=== PATIENT | female | born 1955 | race Caucasian/White ===

== ENCOUNTER 2021-10-24 09:08 | Inpatient (IN) | payer MEDICARE, OTHER ==
[~2021-10-24] VITALS: Ht 154.9 cm; Wt 157.2 kg
--- OUTSIDE RECORDS SUMMARY | 2021-10-24 09:12 | XMS ---
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 Gulshan has no Care Guidelines for this patient. Samaria VISIT COUNT (12 MO.) 1 SHANTE Cordon TOTAL 1 NOTE: Visits indicate total known visits. ED/C VISIT TRACKING (12 MO.) 10/24/2021 09:09 SHANTE Bang [place] TYPE: Emergency COMPLAINT: - ALTERED MENTAL STATUS, WEAKNESS INPATIENT VISIT TRACKING (12 MO.) No inpatient visits to display in this time frame [email or web address]
[2021-10-24] MEDS ORDERED: ATORVASTATIN CA40 MG PO (10:19)
[2021-10-24] MEDS ORDERED: LISINOPRIL20 MG PO (10:20)
[2021-10-24] MEDS ORDERED: METFORMIN HCL500 M1 PO (10:20)
[2021-10-24] MEDS ORDERED: GABAPENTIN100 MG PO (10:20)
[2021-10-24] MEDS ORDERED: GLIPIZIDE ER10 MG PO (10:20)
[2021-10-24] MEDS ORDERED: CHLORTHALIDONE25 MG PO (10:20)
[2021-10-24] MEDS ORDERED: ASPIRIN81 MG PO (10:21)
--- NOTE | 2021-10-24 14:00 | NUR ---
PT ARRIVED TO FLOOR VIA STRETCHER. PT STAND TRANSFERRED TO BED. PT UNSTEADY WITH STANDING. AND REQUIRED ASSISTANCE. PT ON 2L 92% NC.
--- NOTE | 2021-10-24 14:30 | NUR ---
THIS RN ASSISTED PT TO RESTROOM AND BACK TO BED. PTS SATS DROPPED TO 78% ON 2L NC. THIS RN TURNED UP OXYGEN, PT RECOVERED WITHIN 1 MIN. PT TO EAT LUNCH AT THIS TIME
--- NOTE | 2021-10-24 15:01 | NUR ---
MED REC COMPLETED BY PHARMACY
--- NOTE | 2021-10-24 16:40 | NUR ---
THIS RN TO CHECK ON PT. PT ON THE PHONE AND STATES THAT SHE IS DOING GOOD.
--- NOTE | 2021-10-24 17:33 | NUR ---
PT LAYING IN BED TALKING ON PHONE. BS SUGAR CHECK DONE, VS DONE. CALL LIGHT WITHIN REACH NO FURTHER NEEDS AT THIS TIME.
--- NOTE | 2021-10-24 18:07 | NUR ---
Spoke with pt by phone and she states she lives with her daughter in [place], [place]. She uses a cane and a shower chair. She denies other needs. She is on and we discussed I will assist with 02 if she needs on dc. Pt denies financial issues or any other needs..
--- NOTE | 2021-10-24 19:30 | NUR ---
SHIFT REPORT RECEIVED FROM PHILL IN [facility], pt ISOLATION-COVID POSITIVE. pt ON 2LNC, CPOX IN PLACE. SPO2 90'S. pt REPORTS NEED TO VOID, DRILL PRESS OPERATOR FOR METAL ALBERTO TO ASSIST pt. NO FURTHER NEEDS, CALL LIGHT IN REACH.
--- NOTE | 2021-10-24 19:50 | NUR ---
in to assist pt to the bsc, pt able to move legs on and off the bed with some assistince, pt voids qs and has a lg bm, assisted with ronnell care, back to bed, no further needs at this time
--- NOTE | 2021-10-24 22:12 | NUR ---
DR ALVARADO MADE AWARE OF pt's RECENT ACCUCHECK RESULT OF 488. NO ORDERS FOR INSULIN SS IN EMAR, DR ALVARADO TO PLACE ADDITIONAL INSULIN ORDERS.
--- NOTE | 2021-10-24 22:40 | NUR ---
SCHEDULED INSULIN SS LISPRO AND 20 UNITS LONG ACTING INSULIN GIVEN, SEE EMAR. pt AWAKE AND RESTING IN BED. CPOX IN PLACE, 2LNC ON. SPO2 WNL. pt DISCUSSED S/SX OF HYPOGLYCEMIA WITH THIS RN. WILL MONITOR. IV SITE WNL, FLUIDS INFUSING DIRECTED. NO FURTHER NEEDS, CALL LIGHT IN REACH.
--- NOTE | 2021-10-24 23:30 | NUR ---
ROUNDED ON pt, pt AWAKE AND RESTING IN BED, WATCHING TV. DENEIS NEEDS OR CONCERNS. GAVE ORACLE DBA A THUMBS UP FROM HALLWAY. CALL LIGHT IN REACH.
--- NOTE | 2021-10-25 00:55 | NUR ---
assisted pt onto bsc, then back to bed, pt now laying more to left side pillow under right side for support, pt asking if she can get a cpap mechine, "I use ine at home, but its not registered," will talk to the rn/rt, no further needs
--- NOTE | 2021-10-25 01:00 | NUR ---
INFORMED BY ARELY DOMINGUEZ, pt REPORTS INABILITY TO SLEEP AND USES A CPAP MACHINE AT HOME. THIS RN AND RT SATISH AT pt's DOOR. pt REPORTS SHE IS "NOT REGISTERED" BUT BOUGHT A USED CPAP MACHINE FROM THE PHARMACY. pt REPORTS SHE IS NOT DIAGNOSED WITH SLEEP APNEA, BUT STATES, "I KNOW I HAVE IT". pt REPORTS SHE HAS SOMEONE WHO COULD BRING IN HER MACHINE TOMORROW, pt REMAINS ON 2LNC. CPOX IN PLACE, SPO2 88%, pt RECENTLY REPOSITIONED, AUGIE LIND. CALL LIGHT IN REACH.
--- NOTE | 2021-10-25 01:30 | NUR ---
pt TITRATED FROM 2LNC TO 3.25-3.5 LNC, SPO2 LOW 90'S. HOB ALSO RASED FOR COMFORT. CPOX REMAINS IN PLACE, WILL MONITOR. NO FURTHER NEEDS. CALL LIGHT IN REACH. IV SITE WNL.
--- NOTE | 2021-10-25 05:39 | NUR ---
ASSESSMENT COMPLETE, pt REPORTS 10/10 PAIN IN BILATERAL THIGHS, pt REPORTS HX OF SIMILAR PAIN, PRN TYLENOL GIVEN (SEE EMAR). IV SITE WNL, NEW BAG IV FLUIDS HUNG AND INFUSED DIRECTED. FRESH WATER PROVIDED, VSS. CALL LIGHT IN REACH.
--- NOTE | 2021-10-25 08:25 | NUR ---
PHONE CALL FROM pt'S DAUGHTER MAIK. UNABLE TO BRING IN CPAP TODAY. QUESTIONS ANSWERED.
--- NOTE | 2021-10-25 08:30 | NUR ---
Discussed in 829 meeting, no plan for dc at this time. Pt will go home with daughter and brother on discharge.
--- NOTE | 2021-10-25 10:46 | NUR ---
Patient a&ox4, up to chair at this time. Patient reports sob with activity, sp02 93% on 3L per nc. Patient reports she slept well and feels much better this morning. No reported pain. IV decreased to 75ml/hr per provider order. No current needs. Persoanl supplies and call light within reach.
--- NOTE | 2021-10-25 11:30 | NUR ---
SPO2 80% ON TELE CPOX. THIS RN IN ROOM, pt'S OXYGEN FELL OF WHILE FIXING HAIR. 3L OXYGEN BY NC REAPPLIED. SPO2 INCRAESES TO WNL. COFFEE PROVIDED. CALL LIGHT IN REACH.
--- NOTE | 2021-10-25 11:44 | NUR ---
Reported blood sugar of [address] Rodriguez.
--- NOTE | 2021-10-25 13:13 | NUR ---
Patient sitting up in chair eating lunch, no distress. Patient is on 2L oxygen per nc, sp02 93% at this time. Patient denies distress and or pain. IV is saline locked. Fresh water at bedside. No current needs. Personal supplies and call light within reach.
--- NOTE | 2021-10-25 15:30 | NUR ---
Tylenol 650mg po admin for generalized pain. Patient sitting up in chair watching tv, no distress. Patient remains on 2L oxygen per nc, respirations non labored. Patient denies further needs at this time. SP02 93%. Fresh water provided. Personal supplies and call light within reach.
--- NOTE | 2021-10-25 17:30 | NUR ---
Dr. Rodriguez aware of most recent blood sugar of 458. Provider to update medications.
--- NOTE | 2021-10-25 18:15 | NUR ---
PHONE CALL FROM pt'S DAUGHTER. QUESTIONS ANSWERED. PHONE CALL TRANSFERRED TO ROOM.
--- NOTE | 2021-10-25 20:29 | NUR ---
ON REESPIRATORY ISOLATION. ON 3L NC, LUNGS DIM AT BASES, SL LFA PATENT. ABD HERNIA INTACT. LARGE ABD. GENERALIZED EDEMA HANDS AND LE. ENCOURAGED TO ELEVATE LEGS. VOIDING QS, WALKS TO BR. CBG 467, DR ALVARADO NOTIFIED, NO NEW ORDERS, RECEIVED SEMGLEE SCHEDULED AND 13 UNITS HUMALOG SS INSULIN. ROBITUSSING SYRUP AND TESSALON PERLES PER COUGH. UP IN CHAIR, WATCHING TV, COOP WITH ASSESSMENT, TOLERATING FLUIDS AND DIET, NO C/O PAIN OR N/V AT THIS TIME. NO SOB OR RESP DISTRESS STATED WHEN ASKED. CALL LIGHT AT HANDS REACH
--- NOTE | 2021-10-25 20:35 | NUR ---
CALLED DR ALVARADO TO NOTIFY OF BS OF 467 PER PROTOCOL. HE SAID OK TO GIVE THE ORDERED DOSE. NO NEW ORDERS RECEIVED.
--- NOTE | 2021-10-25 21:50 | NUR ---
IVF BOLUS 500CC STARTED AND EXTRA 10 UNITS SEMGLEE PER NEW ORDERS GIVEN SQ. PT AWARE, PT STATED THAT SHE IS AWARE OF S/SX OF HYPO/HYPERGLYCEMIA. UP IN CHAIR WATCHING TV
--- NOTE | 2021-10-26 00:53 | NUR ---
pt up in chair, legs in dependent position. Up to BSC with 1PA, voided large amounts of cloudy yellow urine. red buttocks area, back to bed. on 3LNC. tele/cpox #[address], sats 92%. Pt aware of proning positions, very obese. unable prone on her stomach
--- NOTE | 2021-10-26 02:49 | NUR ---
ON RESPIRATORY ISOLATION. PT ON 3LNC, MOUTH BREATHER, CPOX IN PLACE. PT HAS SLEEP APNEA, SLEEPS ON HER BACK/R SIDE. SATS DOWN TO 79 AND INMEDIATELY BACK TO 92-95% . LUNGS CLEAR, DIM AT BASES. COOPERATIVE WITH ASSESSMENT, UNABLE TO PRONE TO HER ABD DUE TO SIZE. BUT TURNS TO R AND LEFT SIDE. PRINTED PAMPHLETES FOR S/SX HYPO-HYPERGLYCEMIA GIVEN. CALL LIGHT AND LFUIDS AT [facility]
--- NOTE | 2021-10-26 05:35 | NUR ---
Pt has slept this shift. Continues on Respiratory isolation precautions. On 3LNC O2, lungs dim at bases, occassional dry non productive cough. received Tessalon perles and cough syrup ; c/o hips/thighs pain, medicated with Tylenol, effective. tolerating liquids well, no emeis. Up to BSC with assist, voided large amounts QS of cloudy urine, denies s/sx burning or pain with urination. needs assist transferring to bed. Generalized edema, very obese, alert, orineted and cooperative. uses call light
--- NOTE | 2021-10-26 07:30 | NUR ---
Shift report recieved from RN Maddison, pt resting safely w/ call light in reach and eyes closed, RR even and unlabored on 3L, O2 sats 97% per Tele #1 cpox.
--- NOTE | 2021-10-26 10:00 | NUR ---
1PA w/FWW to BSC, pt voided and assisted to chair, sitting up safely w/ call light in reach. Morning assesment complete, scheduled meds given, and IV anitviral hung and infusing per provider orders, see EMAR. Pt denies any needs at this time, minimal SOB w/ activity. O2 sats 93% on 3L per cpox Tele #1
--- NOTE | 2021-10-26 12:30 | NUR ---
Pt sitting up in chair safely w/ call light in reach, eating lunch. Scheduled and SS insulin given per provider order. Pt denies any other needs at this time
--- NOTE | 2021-10-26 14:00 | NUR ---
Pt sitting yp in chair w/ call light in reach, pt watching TV, denies any needs at this time
--- NOTE | 2021-10-26 14:37 | NUR ---
AMBULATED PT FROM CHAIR TO BSC USING PT'S CANE. PERICARE DONE. PT HELD BALANCE WHILE THIS SKOOG MACHINE OPERATOR AGRICULTURAL AGENT HER UP. ASSISTED PT WITH PIVOTING AND GETTING SITUATED BACK INTO BED. CALL LIGHT WITHIN REACH, NO FURTHER NEEDS AT THIS TIME
--- NOTE | 2021-10-26 17:01 | NUR ---
PHYSICAL THERAPIST HAD AMBULATED PT TO BR. ASSISTED PT WITH SHOWERING. PT NEEDED MINOR HELP WASHING HAIR, BACK, AND CARLOZ AREA. DRIED PT OFF, DRIED FLOOR OFF AND AMBULATED PT VIA CANE BACK TO BED. LINEN CHANGE COMPLETE. ASSISTED PT GETTING SITUATED IN BED. CALL LIGHT WTIHIN REACH, NO FURTHER NEEDS AT THIS TIME
--- NOTE | 2021-10-26 18:03 | NUR ---
PT SITTING UP IN BED W/ CALL LIGHT IN REACH, EATING DINNER, SCHEDULED AND SS INSULIN GIVEN PER PROVIDER ORDER, PT DENIES ANY OTHER NEEDS AT THIS TIME
--- NOTE | 2021-10-26 18:29 | NUR ---
IN TO GET VS. PT NEEDED TO VOID. SET BSC UP AT FOOT OF BED AND ASSISTED PT TO EDGE OF BED. PT WAS ABLE TO STAND UP ON HER OWN. GUIDED PT VIA CANE TO BSC. PT VOIDED. ASSISTED PT UP AND DID PERICARE. PT PIVOTED AND SAT ON EDGE OF BED, ASSISTED PT IN GETTING RESITUATED IN BED. CALL LIGHT WITHIN REACH, NO FURTHER NEEDS AT THIS TIME.
--- NOTE | 2021-10-27 00:12 | NUR ---
ON RESPIRATORY PRECAUTIONS, CPAP WITH 6L BLEEDING IN O2, CPOX #[address] SATS 80-93%, BRADYCHARDIC AT 48-57BPM, DENIES C/O, AWAKES EASILY
--- NOTE | 2021-10-27 02:05 | NUR ---
RESTING, USING CPAP W BLEEDING IN O2 6-8L. TELE CPOX#1, SATS 91% AT THIS TIME.
--- NOTE | 2021-10-27 06:03 | NUR ---
pT CONTINUES ON AIRBORNE ISOLATION PRECAUTIONS. ON 3LNC O2 , CPOX #1 . CURRENTLY UP IN CHAIR, LEGS ELEVATED. USED HER HOME CPAP WITH BLEEDING O2 6-8LSL PATENT, NO C/O CP. LUNGS DIM AT BASES, ON ROOM AIR, ALERT, ORIENTED, PLEASANT AND COOP. CBG 256 RECEIVED SS INSULIN. PT AWARE OF PRONING POSITIONING PAMPHLET IN ROOM
--- NOTE | 2021-10-27 07:03 | NUR ---
RN IN RM TO DECRESS O2 NC TO 2.5 LPM
--- NOTE | 2021-10-27 07:30 | NUR ---
THIS RN RECEIVED REPORT FROM SAGAR TRACY. CPOX IN PLACE
--- NOTE | 2021-10-27 07:31 | NUR ---
pt desatted to 65-80%, had taken O2 NC off, back to nares O2 increased back to 3L, in chair, sats 98% inmediately. no sob.
--- NOTE | 2021-10-27 08:40 | NUR ---
THIS RN IN PTS ROOM TO GIVE PT HER MORNING MEDS. PT STATES THAT SHE IS DOING WELL THIS AM DESPITE HAVING A HEADACHE 9/10 PAIN. THIS RN PROVIDED PT WITH 650MG TYLENOL. PT STATES THAT HE NEEDS NOTHING FURTHER AT THIS TIME. CALL LIGHT WITHIN REACH AND PT UP TO CHAIR STATING THAT SHE IS COMFORTABLE
--- NOTE | 2021-10-27 09:23 | NUR ---
BROUGHT PT WARM BLANKET. PT SITTING IN CHAIR WATCHING TV. CALL LIGHT WITHIN REACH NO FURTHER NEEDS AT THIS TIME
--- NOTE | 2021-10-27 09:35 | NUR ---
THIS RN IN PTS ROOM TO TURN OFF PTS REMDESIVIR. PT STATES THAT SHE IS DOING GOOD AND JUST NEEDS A PILLOW FOR HER HEAD. PT STATES THAT SHE IS COMFORTABLE IN THE CHAIR AT THIS TIME
--- NOTE | 2021-10-27 12:30 | NUR ---
THIS RN DECREASED PTS O2 TO 2.5L NC
--- NOTE | 2021-10-27 12:35 | NUR ---
THIS RN IN PTS ROOM TO GIVE INSULIN. THIS RN ENCOURAGED PT TO WORK WITH PHYSICAL THERAPY DUE TO PT NEEDING TO GO HOME IN THE NEXT FEW DAYS IF SHE CONTINUES TO IMPORVE. PT STATES THAT SHE WILL TRY. PT STATES TAHT SHE NEEDS NOTHING FURTHER AT THIS TIME.
--- NOTE | 2021-10-27 13:00 | NUR ---
ROBERTO FROM P.T. IN ROOM. PT DESATED ON MONITOR TO 65% BUT WAVEFORM DIDN'T APPEAR TO BE GOOD AND PT WAS MOVING AROUND TO MAKE THE WAVE FORM NOT CONGRUENT. ONCE WAVEFORM WAS BETTER ESTABLISHED SATS APPEARED TO BE 85-88% ON 2.5L WHILE UP AND MOVING. PT SAT DOWN AND RECOVERED WITHIN 2 MINS.
--- NOTE | 2021-10-27 13:28 | NUR ---
IN FOR VS. BROUGHT BSC TO A 90 DEGREE ANGLE FROM PT, AND ASSISTED HER IN AMBULATING TO IT VIA CANE. PT VOIDED. PERICARE DONE BY THIS SOLUTION DESIGN ENGINEER; PT UNABLE TO PERFORM IT HERSELF. AMBULATED PT BACK TO CHAIR VIA CANE. CALL LIGHT WITHIN REACH NO FURTHER NEEDS AT THIS TIME.
--- NOTE | 2021-10-27 14:12 | NUR ---
THIS RN UPDATED PTS DAUGHTER ON THE PHONE ABOUT PTS STATUS. ALL QUESTIONS ANSERED TO THIS RNS ABILITY.
--- NOTE | 2021-10-27 15:30 | NUR ---
THIS RN IN PTS ROOM TO GIVE PT SCHEDULED MEDS. PT SITTING UP IN CHAIR AND DOING WELL BUT DOES STATE THAT HER HEADACHE IS STILL LINGERING. THIS RN PROVIDED PT WITH 650MG TYLEONOL AT THIS TIME FOR HER [facility].
--- NOTE | 2021-10-27 15:35 | NUR ---
THIS RN IN PTS ROOM AND ENCOURAGED PT TO USE THE ACUPELLA DUE TO PTS LUNGS SOUNDING COURSE. PT STATES THAT SHE USED IT BUT WAS WORRIED THAT WE COULD HEAR IT, THIS RN EDUCATED PT THAT THIS IS ACTUALLY CELEBRATED IF WE HEAR PT USING.
--- NOTE | 2021-10-27 17:35 | NUR ---
THIS RN IN PTS ROOM TO GIVE INSULIN. PT STATES THAT SHE IS DOING GOOD. CALL LIGHT WITHIN REACH
--- NOTE | 2021-10-27 21:39 | NUR ---
PT WAS ON CHAIR AT BEGINING OF SHIFT, TO [facility], VOIDED QS YELLOW URINE WITH SEDIMENTS. RED CARLOZ. SL PATENT. ON3LNC, TELECPOX #[address], SATS 96%. BACK TO BED, CPAP W 6L BLEEDING O2 IN PLACE. SATS 94%. LUNGS DIM AT BASES, BRADYCHARDIC AT 54BPM. DENIES CP OR SOB WITH EXERTION. EDEMA GENERALIZED, LEGS ELEVATED, ON RESP ISOLATION PRECAUTIONS. RT IN ROOM. O2 DECREASED TO 2L NC PRIOR TO PLACING CPAP. USES CALL LIGHT, TOLERATED FLUIDS AND DIET, NO EMESIS, C/O GENERALIZED PAIN, MEDICATED WITH TYLENOL, TESSALON PERLES AND COUGH SYRUP PER COUGH, MOIST NON PRODUCTIVE OCASSIONAL COUGH PRESENT. ALERT AND ORIENTED, COOPERATIVE
--- NOTE | 2021-10-28 00:12 | NUR ---
using home CPAP, tele/cpox#1 95% P51, R18, call light and fluids a t bedside on resp isolation precautions
--- NOTE | 2021-10-28 01:53 | NUR ---
resting, eyes closed, using cpap w 6L bleeding O2. tele/cpox#1. 97% satgs p52
--- NOTE | 2021-10-28 02:19 | NUR ---
sats 98%, CPAP bleeding O2 decreaesd to 4L. resting, no resp distress
--- NOTE | 2021-10-28 03:39 | NUR ---
Pt was rsting, CPAP in place, got up to br and took O2 /cpap off. desated to 79%, P elevated up to 102bpm, resp 26. voided very large amount of cloudy yellow urine, back to bed. placed on 3lnc and went up to mid 80's and 89% right away. Back on CPAP w 4L/bleeding on O2. sats as per tele#1 90-93%, p51 resp 18. SOB with exertion noted. clean socks and underwear given as she dribbled on her way to the br. tolerating liquids well, went back to sleep inmediately. Instructed to use call light stated understanding, call light at hands reach
--- NOTE | 2021-10-28 05:18 | NUR ---
PT CONTINUES ON RESP ISOLATION. O2 2LNC WHEN AWAKE, HOME CPAP WITH 4L BLEEDING IN O2, LUNGS DIM AT BASES, OCC COUGH, RECEIVED TYLENOL, PER C/O PAIN, TESSALON PERLES AND COUGH SYRUP PER COUGH ALL EFFECTIVE. CBG 254 RECEIVED SS INSULI, DECLINES TO GIVE OWN INSULIN, DIABETIC TEACHNG DONE, SEMIRECEPTIVE. TOLERATING LIQUIDS WELL, NO EMESIS. UP TO BR W/O ASSIST X1, WAS INCONTINENT/DRIBBLED URINE, VOIDED VERY LARGE AMOUNT OF CLOUDY NORMAL SMALL YELLOW URINE. TOOK O2 TUBING OFF AND DESATTED , TACHEIPNEIC AND PULSE OVER 1020, NO CP, O2 SATS UP INMEDIATELY TO MID 80'S AND 90'S WITH O2 PER CP[OX#1. CURRENTLY 95% P51 R16
--- NOTE | 2021-10-28 06:56 | NUR ---
cpox#1, sats 91% using CPAP w 4L bleeding in O2. eyes closed, no distress, call light and fluidsa t bedside
--- NOTE | 2021-10-28 07:15 | NUR ---
this rn received report from elly oseguera. cpox in place
--- NOTE | 2021-10-28 07:45 | NUR ---
this rn in pts room to check on pt due to cpox reading o2 at 85%. pt had taken off o2.
--- NOTE | 2021-10-28 08:45 | NUR ---
THIS RN IN PTS ROOM TO GIVE MORNING MEDS. PT STATES THAT SHE NEEDS TO GO PEE, PT REQUESTING BEDSIDE COMMODE- THIS RN ENCOURAGED PT TO WALK INTO RESTROOM WHICH PT WAS ABLE TO DO WHILE USING CANE. PT STEADY ON FEET BUT DOES BECOME SOB. PT RECOVERS WELL BY THE TIME SHE GETS BACK TO HER CHAIR. PT REQUESTING FOR THIS RN TO WIPE HER, THIS RN ASKED IF PT WIPES HER HERSELF AT HOME, PT REPORTS THAT SHE DOESN'T DO IT WELL- THIS RN ENCOURAGE PT TO DO IT HERSELF. THIS RN TO GIVE PT INSULIN. THIS RN WAS EDUCATING PT ABOUT INSULIN, THIS RN ENCOURAGED PT TO GIVE HERSELF INSULIN, THIS RN EXPLAINED HOW TO DO IT AND THEN HAD PT PREFORM GIVING HERSELF INSULIN. PT ABLE TO COMPLETE WELL AND APPEARED PROUD OF HERSELF. PT STATES THAT SHE FEELS COMFORTABLE TAKING HER BLOOD SUGAR.
--- NOTE | 2021-10-28 09:35 | NUR ---
PT IN CHAIR WITH COFFEE WATCHING TV. CALL LIGHT WITHIN REACH NO FURTHER NEEDS AT THIS TIME.
--- NOTE | 2021-10-28 12:20 | NUR ---
THIS RN IN PTS ROOM TO GIVE INSULIN. THIS RN ALSO TOOK A PRINT OUT OF PTS SLIDING SCALE ORDERS AND TOLD PT WHAT HER BLOOD SUGAR WAS, PT ABLE TO FIGURE OUT HOW MANY UNITS OF INSULIN SHE WAS GOING TO NEED. THIS RN ALSO HAD PT USE AN ALCOHOL SWAB AND THEN GIVE HERSELF INSULIN. PT STATES THAT THIS ISN'T SCARY SHE THOUGHT. THIS RN GAVE PT A PACKET OF DIABETIC EDUCATION TO READ AND THEN THIS RN WILL BE BACK IN TO GO OVER EDUCATION WITH HER. PT UP TO CHAIR. CALL LIGHT AND PHONE WITHIN REACH
--- NOTE | 2021-10-28 13:33 | NUR ---
AMBULATED PT FROM CHAIR TO BSC VIA CANE. PERICARE DONE. PT WAS UNABLE TO DO HER OWN PERICARE. AMBULATED PT BACK TO CHAIR. PT NOW ON PHONE. CALL LIGHT WITHIN REACH NO FURTHER NEEDS AT THIS TIME. BP TAKEN TWICE DUE TO HIGH NUMBERS. ROSSANA POLLOCK NOTIFIED.
--- NOTE | 2021-10-28 13:40 | NUR ---
PT SITTING UP TO CHAIR THIS AM. CALL LIGHT WITHIN REACH AND PT ON PHONE AT THIS TIME. CPOX IN PLACE
--- NOTE | 2021-10-28 15:15 | NUR ---
THIS RN IN CALLED PTS DAUGHTER YONI BACK FOR AN UPDATE. PTS DAUGHTER STATED THAT SHE HAD A CONCERN ABOUT HER MOM COMING HOME DUE TO PT STATING THAT SHE "WASN'T INDEPENDENT IN THE BATHROOM"- MEANING THAT PT NEEDED HELP WIPING. THIS RN UPDATED PTS DAUGHTER THAT PT WAS ABLE TO WIPE HERSELF. PTS DAUGHTER CONCERNED WITH PTS MOBILITY. THIS RN READ OFF THE PHYSCIAL THERAPISTS REPORT TO HER. PTS DAUGHTER CONCERNED WITH SETTING UP OXYGEN- THIS RN EDUCATED DAUGHTER THAT A COMPANY WILL COME AND SET IT UP FOR HER. PTS DAUGHTER STATED CONCERN WITH PHARMACY AND GETTING PERSCRIPTIONS. THIS RN STATED THAT OUR PHARMACY WILL MAKE SURE THAT PT CAN GET MEDS- PT LIVES IN [facility]. PTS DAUGHTER ASKED IF PT COULD GO TO FACILITY- THIS RN STATED FROM THIS RN'S KNOWLEDGE THAT PT DOES NOT QUALIFY FOR A FACILITY. PTS DAUGHTER ASKED IF THEY COULD PICK PT UP Friday- THIS RN STATED THAT PT WILL BE DISCHARGED IN AM IF REMAINING STABLE, IN WHICH SHE WILL BE GOING- PT WAS QUALIFIED TO GO HOME TODAY. ALL CONCERNS ADDRESSED BY THIS RN. NO MORE CONCERNS NOTED.
--- NOTE | 2021-10-28 15:30 | NUR ---
THIS RN IN PTS ROOM TO GIVE PT MEDS. THIS RN ASKED IF PT HAD TIME TO READ OVER EDUCATION PROVIDED. PT DID AND HAD QUESTIONS. ALL QUESTIONS ANSWERED TO THE BEST OF THIS RN'S ABILITY. PT STATES THAT SHE FEELS BETTER ABOUT MEAL PLANNING NOW FROM THE EDUCATION AND IS READY TO TRY AND EAT BETTER. NO FURTHER QUESTIONS. THIS RN ENCOURAGED PT TO WATCH WHEN AIRDROP SYSTEMS TECHNICIAN DOES HER BLOOD SUGAR CHECK FOR HER TO LOOK AT THE PRINT OUT OF HER ORDERS AND FIGURE OUT HOW MUCH INSULIN SHE WAS GOING TO GET.
--- NOTE | 2021-10-28 17:15 | NUR ---
THIS RN IN PTS ROOM TO GIVE PT EVEING INSULIN. PT ABLE TO LOOK AT BLOOD GLUCOSE AND FIGURE OUT HER DOSE FOR INSULIN. PT ALSO ABLE TO PREFORM GIVING HERSELF INSULIN WNL. THIS RN EDUCATED PT ABOUT ROTATING SITES- PT ABLE TO SHOW UNDERSTANDING TO THIS TEACHING. CALL LIGHT WITHIN REACH
--- NOTE | 2021-10-28 20:48 | NUR ---
PT ON RESPIRATORY ISOLATION PRECAUTIONS. O2 2LNC/CPAP AT 4L BLEEDING O2. CPOX#[address] 93% ON 2LNC. UP IN CHAIR, C/O GENERALIZED PAIN, MEDICATED WITH TYLENOL. CBG 256 SS INSULIN COVERAGE. DIABETIC EDUCATION DONE, RECEPTIVE, QUESTIONS ANSWERED TO HER SATISFACTION. SL PATENT. EDEMA TO LE AND HANDS W/O CHANGES FROM ADMIT, ENCOURAGED TO ELEVATE LEGS. UP TO BR W CANE/INDPENDENT, TOLERATED WELL, NO SOB ON RETURN. VOIDED LARGE AMOUNTS OF CLOUDY, STRONG SMELLING AT THIS TIME URINE. DID OWN CARE. BACK TO BED, WILL CALL WHEN READY TO USE CPAP. CALL LIGHT ANDFLUDIS AT BEDSIDE
--- NOTE | 2021-10-29 01:48 | NUR ---
Continues on Respiratory Isolation Precautions, on 1L O2, cpox #1 94% sats P48 eys closed, no distress, call light and fluids at hands reach
--- NOTE | 2021-10-29 03:24 | NUR ---
RESTING, EYES CLOSED, ON O2 1LNC, CPOX 93%. CALL LIGHT AT BEDSIDE
--- NOTE | 2021-10-29 05:13 | NUR ---
Pt on 0.5L NC at this time. cpox#1 92%. has not used her CPAP tonight. hob elevated. coop with assessment. Up to br on 0.5LO2, desatted to 86-88% when walking back, pulse up to 89bpm. R24, much improved once whe got into bed, minimum of assist. uses walker. tolerating liquids well, SL patent. Voiding QS. uses call light. On Respiratory Isolation precautions, diabetic teaching done at this time again, very receptive.
--- NOTE | 2021-10-29 06:52 | NUR ---
PT UPDATED OF PT CHRONIC BRADYCHARDIA AT HS MID 40BPM TO 60BPM. O2 0.5L AND TOLERATING WELL, NO CP.
--- NOTE | 2021-10-29 08:15 | NUR ---
THIS RN IN PTS ROOM TO GIVE MORNING MEDS PT STATES THAT SHE IS FEELING VERY COMFOABLE WITH KNOWING HOW TO MANAGE HER DIABETES. THIS RN TURNED PT OFF ON OXYGEN. PT SATING BETWEEN 90-95% ON ROOM AIR.
--- NOTE | 2021-10-29 10:14 | NUR ---
PATIENT SITTING UP IN BED WATCHING TV. VITALS AND I&O'S CHARTED. CALL LIGHT IN REACH. NO FURTHER NEEDS AT THIS TIME.
[2021-10-29] MEDS ORDERED: GLIPIZIDE ER10 MG PO (10:42)
[2021-10-29] MEDS ORDERED: HUMALOG100 UNITS/ SUB-Q ×2 (10:43→10:44)
[2021-10-29] MEDS ORDERED: SEMGLEE100 UNIT/1 SUB-Q (10:43)
--- NOTE | 2021-10-29 12:26 | NUR ---
this rn in pts room to give pt her lunch time insulin. 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 pt states that she has no concern going home.
== END 2021-10-29 14:35 | disposition home or self-care (01) | DRG 177 ==
LOC: ED 09:08 → MS 12:20
PROVIDERS: ADMIT Student in an Organized Health Care Education/Training Program; ATTEND Student in an Organized Health Care Education/Training Program
PROC: 8E0ZXY6 Isolation (ICD-10-PCS; principal; 2021-10-24)
PROC: XW033E5 Introduction of Remdesivir Anti-infective into Peripheral Vein, Percutaneous Approach, New Technology Group 5 (ICD-10-PCS; 2021-10-24)
PROC: 3E0333Z Introduction of Anti-inflammatory into Peripheral Vein, Percutaneous Approach (ICD-10-PCS; 2021-10-24)
DX: U07.1 COVID-19 (principal); J96.21 Acute and chronic respiratory failure with hypoxia; J12.82 Pneumonia due to coronavirus disease 2019; N17.9 Acute kidney failure, unspecified; E11.22 Type 2 diabetes mellitus with diabetic chronic kidney disease; I12.9 Hypertensive chronic kidney disease with stage 1 through stage 4 chronic kidney disease, or unspecified chronic kidney disease; Z79.84 Long term (current) use of oral hypoglycemic drugs; Z79.82 Long term (current) use of aspirin; E78.5 Hyperlipidemia, unspecified; G89.29 Other chronic pain
CPT/HCPCS: 71045; 80048; 80053; 83036; 83880; 85025; 85379; 86140; 94667; 94668; 94760; 94761; 94762; 96374; 97110; 97116; 97162; 97165; 97530; 97535; 99285-25; A9270; C9803; J0248; J1100; J1650; J1815; J7040; J7050; J7121; J8540; U0003